=== PATIENT | female | born 1975 | race Caucasian/White ===

== ENCOUNTER → 2017-05-08 | Outpatient (CLI) | payer BC ==
--- NOTE | 2017-05-08 15:15 | CT ---
EXAMINATION TYPE: CT abdomen pelvis w con DATE OF EXAM: 05/08/2017 COMPARISON: 02/13/2016 HISTORY: 41-year-old female Ulcerative colitis, generalized abdominal pain TECHNIQUE: Contiguous axial scanning of the abdomen and pelvis following administration of 100 ml Omn ipaque 300 IV contrast. Delayed images through the kidneys and coronal/sagittal reconstructions perf ormed. CT DLP: 1556 mGycm Automated exposure control for dose reduction was used. FINDINGS: Heart is normal size with trace pericardial fluid. Bands of atelectasis at the left base. Liver upper limits of normal in size at 17.9 cm craniocaudal. Similar mild prominence to the biliary system though there is normal distal tapering. Cholecystectomy clips are present. Portal venous syste m is patent. Adrenal glands, kidneys, spleen with inferior splenule, and pancreas appear within normal limits. IVC filter is stable in appearance. Prior ventral abdominal wall mesh repair. Appearance is stable. No dilated small bowel, free fluid, or free air. There is been prior colectomy. Enteroanal anastomosis is demonstrated likely with a J-pouch with cont rast extending distally to the anus. Borderline sized 5 mm mid mesenteric lymph node. Otherwise, no mesenteric or retroperitoneal lymphade nopathy. Bladder urine distended. Uterus and right ovary are visualized. Left ovary not clearly seen. No abnor mal fluid collection in the pelvis or pelvic lymphadenopathy. Bones: No osseous destructive process. IMPRESSION: 1. STATUS POST COLECTOMY WITH ILEOANAL ANASTOMOSIS. 2. NO ACUTE INFLAMMATORY PROCESS IDENTIFIED IN THE ABDOMEN OR PELVIS TO EXPLAIN THE PATIENT'S SYMPTOM S. 3. STABLE APPEARANCE TO THE PATIENT'S PRIOR VENTRAL WALL MESH REPAIR.
== END | disposition home or self-care (01) ==
LOC: RADCTMAIN 12:11
PROVIDERS: ATTEND Family Medicine
DX: K63.89 Other specified diseases of intestine (principal); R10.84 Generalized abdominal pain; Z90.49 Acquired absence of other specified parts of digestive tract; Z98.890 Other specified postprocedural states
CPT/HCPCS: 74177; Q9967

== ENCOUNTER 2017-12-26 10:55 | Emergency (ER) | payer BC ==
[2017-12-26 11:05] VITALS: RESP 18
[2017-12-26] MEDS ORDERED: PROPARACAINE 0.5% OPHTH DROPS 15 ML BTL RIGHT EYE STA (11:29)
--- NOTE | 2017-12-26 11:34 | ED ---
General Adult HPI - General Chief complaint: ENT Stated complaint: eye irritaion Time Seen by Provider: 12/26/17 11:13 Source: patient, RN notes reviewed Mode of arrival: ambulatory Limitations: no limitations - History of Present Illness Initial comments: Patient 42-year-old female presenting to the emergency room today with chief complaint of right eye irritation that started in the middle of night. She does admit that she noticed a foreign body sensation. She states she did go to an urgent care. She states that he did put some numbing drops and didn't relief the symptoms. She states that they did check the IV could not see anything wrong with it. They gave her some antibiotic drops. She states that she was advised complete emergency room symptoms increase. She states that she cannot work the numbing drops and to wear off and she felt worse pain. She states is worse when she blinks. She states her vision seems to be normal. She does admit some watery discharge. Patient denies any other complaints. Patient denies any recent fever, chills, shortness of breath, chest pain, headaches or visual changes, or any other complaints. - Related Data Home Medications Medication Instructions Recorded Confirmed Loperamide [Imodium] 2 mg PO DAILY PRN 01/31/15 02/13/16 Butalb/Acetaminophen/Caffeine 1 cap PO Q6HR PRN 02/13/16 02/13/16 [Fioricet 50-300-40 mg Capsule] Previous Rx's Medication Instructions Recorded Omeprazole [PriLOSEC] 40 mg PO DAILY #30 capsule. 02/14/16 Erythromycin Ophth Oint [Romycin 1 applic RIGHT EYE QID 7 Days gm 12/26/17 Ophth Oint] Allergies Allergy/AdvReac Type Severity Reaction Status Date / Time heparin Allergy HIT Verified 12/26/17 11:02 sulfamethoxazole Allergy Rash/Hives Verified 12/26/17 11:02 [From Bactrim] trimethoprim [From Bactrim] Allergy Rash/Hives Verified 12/26/17 11:02 Review of Systems ROS Statement: Those systems with pertinent positive or pertinent negative responses have been documented in the HPI. ROS Other: All systems not noted in ROS Statement are negative. Past Medical History Past Medical History: Deep Vein Thrombosis (DVT), Pulmonary Embolus (PE) Additional Past Medical History / Comment(s): migraines, colitis,varicose veins, DVT ami legs, ami PE'S, pancreatitis 2010 History of Any Multi-Drug Resistant Organisms: None Reported Past Surgical History: Cholecystectomy, Hernia Repair, Tubal Ligation Additional Past Surgical History / Comment(s): sher filter later removal attempted, bowel resection, j-pouch, colostomy/reversal, oopherectomy Past Anesthesia/Blood Transfusion Reactions: No Reported Reaction Past Psychological History: No Psychological Hx Reported Smoking Status: Never smoker Past Alcohol Use History: None Reported Past Drug Use History: None Reported - Past Family History Mother Family Medical History: Deep Vein Thrombosis (DVT) Father Family Medical History: No Reported History General Exam - General Exam Comments Initial Comments: General: The patient is awake and alert, in no distress, and does not appear acutely ill. Eye: Pupils are equal, round and reactive to light. Extra-ocular movements are intact. No nystagmus. There is normal conjunctiva bilaterally. No signs of icterus. Ears, nose, mouth and throat: There are moist mucous membranes and no oral lesions. Neck: The neck is supple, there is no tenderness or JVD. Musculoskeletal: Normal ROM, no tenderness. Sensation intact. Strength 5/5. Pulses equal bilaterally 2+. Neurological: A&O x 3. CN II-XII intact, There are no obvious motor or sensory deficits. Coordination appears grossly intact. Speech is normal. Skin: Skin is warm and dry and no rashes or lesions are noted. Psychiatric: Cooperative, appropriate mood & affect, normal judgment. Limitations: no limitations Course Vital Signs 12/26/17 11:02 Temperature 97.6 F Pulse Rate 78 Respiratory 18 Rate Blood Pressure 132/91 O2 Sat by Pulse 97 Oximetry Procedures - Procedures Initial comment: Patient's right eye was anesthetized with proparacaine. This certainly patient' s symptoms. Patient's eye was stained with forcing checked with Wood's lamp revealing small cornea abrasion at the 12 o'clock position. The right I was checked with slit lamp showing region centrally over the eye. Lids inverted no foreign bodies. Patient tolerated procedure well. Medical Decision Making - Medical Decision Making Patient's tetanus will be updated here in emergency room. Patient will be given antibiotic ointment. Ophthalmology tomorrow. Advised return if any symptoms increase worsen appropriate concerns. Disposition Clinical Impression: Corneal abrasion Disposition: HOME SELF-CARE Condition: Good Instructions: Corneal Abrasion (ED) Additional Instructions: Please use antibiotic drops as prescribed and follow-up mess cook as discussed. Please return to emergency room if the symptoms increase or worsen or for any other concerns. Prescriptions: Erythromycin Ophth Oint [Romycin Ophth Oint] 1 applic RIGHT EYE QID 7 Days gm Is patient prescribed a controlled substance at d/c from ED?: No Referrals: Jan Cortes DO [Primary Care Provider] - 1-2 days Claire Luevano MD [STAFF PHYSICIAN] - 1-2 days Time of Disposition: 12:01
[2017-12-26] MEDS ORDERED: DIPH,PERTUS(ACELL)TETVAC-LF 0.5 ML VIAL IM ONE (11:57)
[2017-12-26 12:31] VITALS: BP 130/78; PULSE 98; TEMP 98
== END 2017-12-26 12:30 | disposition home or self-care (01) ==
LOC: EC 10:55
DX: S05.01XA Injury of conjunctiva and corneal abrasion without foreign body, right eye, initial encounter (principal); Z23 Encounter for immunization; Z88.8 Allergy status to other drugs, medicaments and biological substances; Z88.2 Allergy status to sulfonamides; X58.XXXA Exposure to other specified factors, initial encounter
CPT/HCPCS: 90471; 90715; 99283

== ENCOUNTER → 2021-01-19 | Outpatient (CLI) | payer BC ==
--- NOTE | 2021-01-19 13:57 | US ---
EXAMINATION TYPE: US pelvic complete DATE OF EXAM: 01/19/2021 COMPARISON: NONE CLINICAL HISTORY: 45-year-old female N95.0 post menopausal bleeding. One time bleeding since menopaus e. TECHNIQUE: Transabdominal sonographic images of the pelvis were acquired. Transvaginal sonographic i mages were medically necessary to better assess the following anatomy: Endometrium Date of LMP: 2-3 years ago FINDINGS: EXAM MEASUREMENTS: Uterus: 9.3x5.0x3.5 cm Endometrial Stripe: 1.6 cm Right Ovary: 1.8x1.5x1.1 cm Left Ovary: Surgically absent 1. Uterus: Anteverted and otherwise wnl 2. Endometrium: Thickened 3. Right Ovary: wnl 4. Left Ovary: Surgically absent 5. Bilateral Adnexa: wnl 6. Posterior cul-de-sac: wnl IMPRESSION: 1. Endometrial stripe is abnormally thickened at 1.6 cm in a postmenopausal female. Endometrial hyper plasia, polyps, and endometrial carcinoma are differential considerations. Recommend further PUBLIC HEALTH ANALYST e valuation. 2. Left ovary surgically absent. 3. No pelvic free fluid.
== END | disposition home or self-care (01) ==
LOC: RADUSWWP 12:14
PROVIDERS: ATTEND Family Medicine
DX: N85.00 Endometrial hyperplasia, unspecified (principal); R93.89 Abnormal findings on diagnostic imaging of other specified body structures
CPT/HCPCS: 76856

== ENCOUNTER → 2022-10-24 | Outpatient (CLI) | payer BC ==
--- NOTE | 2022-10-24 07:50 | MM ---
Reason for Exam: Screening (asymptomatic). Last mammogram was performed 12 year(s) and 0 month(s) ago. Patient History: Menarche at age 13. First Full-Term at age 25. Postmenopausal. Patient has history of breast feeding. Risk Values: Thu 5 year model risk: 1.0%. NCI Lifetime model risk: 10.3%. Prior Study Comparison: 10/19/2010 Bilateral Screening Mammogram, [facility]. 10/30/2010 Left Diagnostic Mammogram, [facility]. Tissue Density: There are scattered fibroglandular densities. Findings: Analyzed By CAD. There is no suspicious group of microcalcifications or new suspicious mass in either breast. Overall Assessment: Negative, BI-RAD 1 Management: Screening Mammogram of both breasts in 1 year. . Patient should continue monthly self-breast exams. A clinical breast exam by your physician is recommended on an annual basis. This exam should not preclude additional follow-up of suspicious palpable abnormalities. Note on Thu scores and lifetime risk: 1. A Thu score greater than 3% is considered moderate risk. If this is the case, consider specialist referral to assess eligibility for a risk reducing agent. 2. If overall lifetime risk for the development of breast cancer is 20% or higher, the patient may qualify for future screening with alternating mammogram and breast MRI. Electronically signed and approved by: Santana Márquez M.D. Radiologis
== END | disposition home or self-care (01) ==
LOC: RADMAMWWP 07:15
PROVIDERS: ATTEND Family Medicine
DX: Z12.31 Encounter for screening mammogram for malignant neoplasm of breast (principal); Z78.0 Asymptomatic menopausal state
CPT/HCPCS: 77063; 77067

== ENCOUNTER → 2023-04-30 | Outpatient (CLI) | payer BC ==
--- NOTE | 2023-05-01 14:16 | XR ---
EXAMINATION TYPE: XR foot complete 3 views bilateral DATE OF EXAM: 04/30/2023 Comparison: None Clinical History: 47-year-old female [id number] PASTORA FOOT PAIN Findings: On the right, there is a small type I accessory navicular incidentally noted. Small posterior calcane al spurs on both sides. No acute fracture, subluxation, or dislocation on either side. Impression: No acute osseous abnormal seen. Small posterior calcaneal spurs at the Achilles insertion.
== END | disposition home or self-care (01) ==
LOC: RADXRYALE 17:02
PROVIDERS: ATTEND Physician Assistant Medical
DX: M77.32 Calcaneal spur, left foot (principal); M77.31 Calcaneal spur, right foot

== ENCOUNTER 2023-09-25 12:33 | Emergency (ER) | payer BC ==
[2023-09-25 12:45] VITALS: BP 132/88; PULSE 74; RESP 18; TEMP 97.8
--- NOTE | 2023-09-25 13:22 | ED ---
Extremity Problem HPI - General Chief complaint: Extremity Problem,Nontraumatic Stated complaint: Blood clot R leg-sent by PCP Time Seen by Provider: 09/25/23 12:33 Source: patient, RN notes reviewed Mode of arrival: ambulatory Limitations: no limitations - History of Present Illness Initial comments: 48-year-old female presents emergency department from outpatient ultrasound for positive DVT. Patient states she has a history of DVT. She denies any chest pain shortness of breath she states she had a DVT years ago in which she had IVC filter placed. Patient denies any associated symptoms. - Related Data Home Medications Medication Instructions Recorded Confirmed Loperamide [Imodium] 2 mg PO DAILY PRN 01/31/15 02/13/16 Butalb/Acetaminophen/Caffeine 1 cap PO Q6HR PRN 02/13/16 02/13/16 [Fioricet 50-300-40 mg Capsule] Previous Rx's Medication Instructions Recorded Omeprazole [PriLOSEC] 40 mg PO DAILY #30 capsule. 02/14/16 Erythromycin Ophth Oint [Romycin 1 applic RIGHT EYE QID 7 Days gm 12/26/17 Ophth Oint] Apixaban [Eliquis Starter Pack 0 mg PO DIRECTED 30 Days #1 09/25/23 (for VTE)] packet Allergies Allergy/AdvReac Type Severity Reaction Status Date / Time heparin Allergy HIT Verified 09/25/23 12:45 sulfamethoxazole Allergy Rash/Hives Verified 09/25/23 12:45 [From Bactrim] trimethoprim [From Bactrim] Allergy Rash/Hives Verified 09/25/23 12:45 Review of Systems ROS Statement: Those systems with pertinent positive or pertinent negative responses have been documented in the HPI. ROS Other: All systems not noted in ROS Statement are negative. Past Medical History Past Medical History: Deep Vein Thrombosis (DVT), Pulmonary Embolus (PE) Additional Past Medical History / Comment(s): migraines, colitis,varicose veins,DVT ami legs, ami PE'S, pancreatitis 2010 History of Any Multi-Drug Resistant Organisms: None Reported Past Surgical History: Cholecystectomy, Hernia Repair, Tubal Ligation Additional Past Surgical History / Comment(s): sher filter later removal attempted, bowel resection, j-pouch, colostomy/reversal, oopherectomy Past Anesthesia/Blood Transfusion Reactions: No Reported Reaction Past Psychological History: No Psychological Hx Reported Past Alcohol Use History: None Reported Past Drug Use History: None Reported - Past Family History Mother Family Medical History: Deep Vein Thrombosis (DVT) Father Family Medical History: No Reported History General Exam Limitations: no limitations General appearance: alert, in no apparent distress Head exam: Present: atraumatic, normocephalic, normal inspection Neck exam: Present: normal inspection, full ROM. Absent: tenderness, meningismus, lymphadenopathy Respiratory exam: Present: normal lung sounds bilaterally. Absent: respiratory distress, wheezes, rales, rhonchi, stridor Cardiovascular Exam: Present: regular rate, normal rhythm, normal heart sounds. Absent: systolic murmur, diastolic murmur, rubs, gallop, clicks Extremities exam: Present: other (Right calf vascular intact) Course Vital Signs 09/25/23 12:40 Temperature 97.8 F Pulse Rate 74 Respiratory 18 Rate Blood Pressure 132/88 O2 Sat by Pulse 98 Oximetry Medical Decision Making - Medical Decision Making Was pt. sent in by a medical professional or institution (, PA, HEAD OF TRAINING AND DEVELOPMENT, urgent care, hospital, or [facility]...) When possible be specific @ -No Did you speak to anyone other than the patient for history (EMS, parent, family, police, friend...)? What history was obtained from this source @ -No Did you review nursing and triage notes (agree or disagree)? Why? @ -I reviewed and agree with nursing and triage notes Were old charts reviewed (outside hosp., previous admission, EMS record, old EKG, old radiological studies, urgent care reports/EKG's, ch[facility] records)? Report findings @ -No old charts were reviewed Differential Diagnosis (chest pain, altered mental status, abdominal pain women, abdominal pain men, vaginal bleeding, weakness, fever, dyspnea, syncope, headache, dizziness, GI bleed, back pain, seizure, CVA, palpatations, mental health, musculoskeletal)? @ -DVT, superficial thrombophlebitis EKG interpreted by me (3pts min.). @ -None X-rays interpreted by me (1pt min.). @ -None done CT interpreted by me (1pt min.). @ -None done U/S interpreted by me (1pt. min.). @ - ultrasound outpatient showing evidence of right proximal calf DVT What testing was considered but not performed or refused? (CT, X-rays, U/S, labs)? Why? @ -None What meds were considered but not given or refused? Why? @ -None Did you discuss the management of the patient with other professionals (professionals i.e. , PA, HEAD OF TRAINING AND DEVELOPMENT, lab, RT, psych nurse, social welfare administrator, front desk assistant, teacher, development officer, case checker)? Give summary @ -No Was smoking cessation discussed for >3mins.? @ -No Was critical care preformed (if so, how long)? @ -No Were there social determinants of health that impacted care today? How? (Homelessness, low income, unemployed, alcoholism, drug addiction, transportation, low edu. Level, literacy, decrease access to med. care, alf, rehab)? @ -No Was there de-escalation of care discussed even if they declined (Discuss DNR or withdrawal of care, Hospice)? DNR status @ -No What co-morbidities impacted this encounter? (DM, HTN, Smoking, COPD, CAD, Cancer, CVA, ARF, Chemo, Hep., AIDS, mental health diagnosis, sleep apnea, morbid obesity)? @ -None Was patient admitted / discharged? Hospital course, mention meds given and route, prescriptions, significant lab abnormalities, going to OR and other pertinent info. @ -Discharge patient has a positive DVT patient has no other acute symptoms patient was given Eliquis discharged on Eliquis patient has an IVC filter. Undiagnosed new problem with uncertain prognosis? @ -No Drug Therapy requiring intensive monitoring for toxicity (Heparin, Nitro, Insulin, Cardizem)? @ -No Were any procedures done? @ -No Diagnosis/symptom? @ -DVT right leg Acute, or Chronic, or Acute on Chronic? @ -Acute Uncomplicated (without systemic symptoms) or Complicated (systemic symptoms)? @ -Uncomplicated Side effects of treatment? @ -No Exacerbation, Progression, or Severe Exacerbation? @ -No Poses a threat to life or bodily function? How? (Chest pain, [place], [place], pneumonia, PE, COPD, DKA, ARF, appy, cholecystitis, CVA, Diverticulitis, Homicidal, Suicidal, threat to staff... and all critical care pts) @ -No Disposition Clinical Impression: Deep vein thrombosis (DVT) of lower extremity Disposition: HOME SELF-CARE Condition: Stable Instructions (If sedation given, give patient instructions): Deep Vein Thrombosis (ED) Additional Instructions: Please return to the Emergency Department if symptoms worsen or any other concerns. Prescriptions: Apixaban [Eliquis Starter Pack (for VTE)] 0 mg PO DIRECTED 30 Days #1 packet Is patient prescribed a controlled substance at d/c from ED?: No Referrals: Jan Cortes DO [Primary Care Provider] - 1-2 days Time of Disposition: 13:21
== END 2023-09-25 13:34 | disposition home or self-care (01) ==
LOC: EC 12:33
DX: I82.401 Acute embolism and thrombosis of unspecified deep veins of right lower extremity (principal); Z88.2 Allergy status to sulfonamides; Z88.1 Allergy status to other antibiotic agents; Z88.8 Allergy status to other drugs, medicaments and biological substances
CPT/HCPCS: 99282

== ENCOUNTER → 2023-09-25 | Outpatient (CLI) | payer BC ==
--- NOTE | 2023-09-25 13:00 | US ---
EXAMINATION TYPE: US venous doppler duplex LE RT DATE OF EXAM: 09/25/2023 12:22 PM COMPARISON: NONE CLINICAL INDICATION: Female, 48 years old with history of R22.40 LOCALIZED SWELLING, MASS AND LUMP, U NSPECIF; pain rt leg back of calf SIDE PERFORMED: Right TECHNIQUE: The lower extremity deep venous system is examined utilizing real time linear array sonog [place] with graded compression, doppler sonography and color-flow sonography. VESSELS IMAGED: Common Femoral Vein Deep Femoral Vein Greater Saphenous Vein * Femoral Vein Popliteal Vein Small Saphenous Vein * Proximal Calf Veins (* superficial vessels) Right Leg: Positive for DVT in Calf veins IMPRESSION: Positive deep vein thrombosis in the right calf veins. Findings communicated to Dr. Jaquan Caraballo MD on 09/25/2023 12:[address] Rashard Helms. Unable to send messages via [employer] to Dr. Caraballo A Dixon level critical message alert has been initiated for Jaquan Caraballo MD via the [employer] Critical Results System on 09/25/2023 12:54 PM. This message alert has been sent to Jaquan Caraballo MD vi a the preferences provided by the clinician for the receipt of Radiology Critical Findings. Message I D [id number].
== END | disposition home or self-care (01) ==
LOC: RADUSWWP 12:01
PROVIDERS: ATTEND Family Medicine
DX: R22.40 Localized swelling, mass and lump, unspecified lower limb (principal); I82.4Z1 Acute embolism and thrombosis of unspecified deep veins of right distal lower extremity

== ENCOUNTER → 2023-12-30 | Outpatient (CLI) | payer BC ==
--- NOTE | 2023-12-30 14:51 | US ---
EXAMINATION TYPE: US pelvis complete transvag DATE OF EXAM: 12/30/2023 COMPARISON: US 2020,CT 2017 CLINICAL INDICATION: Female, 48 years old with history of N95.0 POST [place] BLEEDING; Pt had post-me nopausal bleeding x 6 days, it has since stopped. Hx left ovary removed, hx 1 miscarriage. . TECHNIQUE: Transvaginal (TV) and Transabdominal (TA) . Transabdominal grayscale, color Doppler and spectral Doppler sonographic images of the pelvis were acquired. Transvaginal sonographic images wer e medically necessary to better assess the following anatomy: Endometrium, right ovary FINDINGS: Date of LMP: Age 41 EXAM MEASUREMENTS: Uterus: 10.0 x 6.6 x 3.2 cm Endometrial Stripe: 1.21 cm Right Ovary: 2.6 x 1.1 x 1.2 cm Left Ovary: Surgically absent 1. Uterus: Anteverted Measures upper limits. *Anterior uterus appears heterogeneous. Complex/heterogeneous area seen in cervix: 2.0 x 1.4 x 1.0 cm. 2. Endometrium: *Measures 1.21 cm. Appears thickened post-menopausal. 3. Right Ovary: Appears wnl 4. Left Ovary: Surgically absent. 5. Bilateral Adnexa: Appear wnl 6. Posterior cul-de-sac: Appears wnl IMPRESSION: 1. There is a complex heterogeneous area noted within the lower uterine segment\cervix measuring 2 x 1.4 cm. The endometrium also is thickening measuring 1.2 cm. Underlying mass or blood product\hemorrh age/hematoma in the differential diagnosis. Consider gynecological consultation and correlation with MRI. [facility], , 12/30/2023 2:49 PM A Yellow level critical message alert has been initiated for Jan Cortes DO via the [employer] Critical Results System on 12/30/2023 2:48 PM. This message alert has been sent to Jan chauhan DO via the preferences provided by the clinician for the receipt of Radiology Critical Findings . Message ID [id number].
== END | disposition home or self-care (01) ==
LOC: RADUSWWP 14:12
PROVIDERS: ATTEND Family Medicine
CPT/HCPCS: 76830; 76856